=== PATIENT | male | born 1955 | race Caucasian/White ===

== ENCOUNTER 2022-05-18 22:03 | Emergency (ER) | payer OTHER ==
[~2022-05-18] VITALS: Ht 188 cm; Wt 104.3 kg
[2022-05-18 22:03] VITALS: BP 122/70
[~2022-05-18 22:03] MED LIST: ASPI-1886 PO; FURO-571 PO; METO-624 PO; NTG SL; POTA20TA50 PO
--- NOTE | 2022-05-18 22:20 | NUR ---
Dr. Cee examining patient.
--- NOTE | 2022-05-18 22:26 | NUR ---
PT SWATHI ALS. TAKEN TO BED 7
--- NOTE | 2022-05-18 23:00 | NUR ---
PATIENT REFUSING XRAY , IV INSERTION, AND LABS. PATIENT TOOK ECG STICKERS AND MONITOR OFF, AND STATED "IM GOING TO GET CRAZY IM JUST GOING TO LEAVE BEFORE I GET IRATE". [facility] EMT WHEELED PT TO LOBBY IN HIS PERSONAL WHEECHAIR, PT THEN CHANGED HIS MIND AND SAID WOULD STAY IF ONLY HIS IV WAS DONE BY ULTRASOUND
--- NOTE | 2022-05-18 23:13 | NUR ---
X-Ray at bedside.
--- NOTE | 2022-05-18 23:53 | NUR ---
PT VERBALLY UNCOMPLIANT. REFUSES TO LET ANY NURSE START A IV OR GET BLOOD.
--- NOTE | 2022-05-19 00:03 | NUR ---
66YR OLD MALE BIB EMS C/O CP . [facility] PT IS HOMELESS . DENIES SOB. CP 02/05. HX OF TX . PRESSURE TIGHTNESS RADIATES TO L SHOULDER. PT SPEAKING IN FULL SENTENCES. A&OX4. HAS R LEG STUMP. LEFT LEG SWELLING NON PITTING. R STUMP SWELLING NON PITTING. SP02 95% RA. PT IS VERBALLY AGGRESSIVE WITH STAFF AND NONCOMPLIANT. 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 HOB ELEVEATED. SIDE RAILS UP X1. BED AT LOWEST POSITION
--- NOTE | 2022-05-19 00:25 | NUR ---
PT REFUSED TO COMPLY WITH CARE , IV LABS OR XRAY. PT RIPPED OFF ECG LEADS AND PROCEEDED TO TRY TO GET OFF BED. PT WAS ASSISTED OFF GRUNEY AND PLACED IN HIS PERSONAL WHEELCHAIR. ESCORTED TO WAITING ROOM. PT VERBALLY ABUSIVE TOWARDS STAFF AND MADE THREATS TO HARM IF NOT SUCCESS WITH IV PLACEMENT
--- NOTE | 2022-05-19 00:26 | NUR ---
Patient does not wish to proceed with medical care recommended by . Patient given information related to possible complications, up to and including , which could occur as a result of leaving hospital at this time. Patient verbalizes understanding of risks involved leaving against medical advice. Patient has signed AMA form.
--- NOTE | 2022-05-19 00:26 | NUR ---
Chart checked and completed.
== END 2022-05-19 00:26 | disposition left against medical advice (07) ==
LOC: MED 22:03
DX: R07.9 Chest pain, unspecified (principal); I10 Essential (primary) hypertension; I25.10 Atherosclerotic heart disease of native coronary artery without angina pectoris; E11.9 Type 2 diabetes mellitus without complications; F17.200 Nicotine dependence, unspecified, uncomplicated; Z79.4 Long term (current) use of insulin; Z79.899 Other long term (current) drug therapy; Z88.5 Allergy status to narcotic agent; Z90.49 Acquired absence of other specified parts of digestive tract; Z98.890 Other specified postprocedural states
CPT/HCPCS: 93005; 99283

== ENCOUNTER 2023-11-21 14:42 | Emergency (ER) | payer OTHER ==
[~2023-11-21] VITALS: Ht 188 cm; Wt 104.3 kg
[2023-11-21 15:43] VITALS: BP 117/62; PULSE 85; RESP 20; TEMP 98; O2SAT 99
== END 2023-11-21 16:30 | disposition left against medical advice (07) ==
LOC: MED 14:42
DX: R07.89 Other chest pain (principal); E11.9 Type 2 diabetes mellitus without complications; I11.0 Hypertensive heart disease with heart failure; I50.9 Heart failure, unspecified; I25.10 Atherosclerotic heart disease of native coronary artery without angina pectoris; Z95.0 Presence of cardiac pacemaker; Z79.899 Other long term (current) drug therapy; Z79.82 Long term (current) use of aspirin; Z88.5 Allergy status to narcotic agent
CPT/HCPCS: 93005; 99283